=== PATIENT | female | born 2000 | race Caucasian/White ===

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

== ENCOUNTER 2019-04-14 19:39 | Emergency (ER) | payer OTHER | END 2019-04-15 02:15 | disposition home or self-care (01) | LOC: JER 04-15 02:15 ==

== ENCOUNTER 2024-01-05 10:50 | Emergency (ER) | payer OTHER ==
[2024-01-05 11:08] VITALS: BP 118/60; PULSE 72; RESP 18; TEMP 97; BMI 20.1
[2024-01-05] MEDS ORDERED: CYCLOBENZAPRINE HCL 10 MG TABLET (FP) ONE (13:59)
[2024-01-05] MEDS: CYCLOBENZAPRINE HCL 10 MG TABLET (FP) PO ONE (14:00)
== END 2024-01-05 14:06 | disposition home or self-care (01) ==
LOC: JERFT 10:50
DX: M54.2 Cervicalgia (principal); M54.6 Pain in thoracic spine; V43.62XA Car passenger injured in collision with other type car in traffic accident, initial encounter
CPT/HCPCS: 99283-25